=== PATIENT | male | born 1980 | race Caucasian/White ===

== ENCOUNTER → 2018-03-23 12:18 | Outpatient (CLI) | payer BC, SELFPAY ==
[2018-03-23 12:48] LABS: Blood Urea Nitrogen 20 mg/dL (7-18); Creatinine,Serum 1.06 mg/dL (0.70-1.30); Estimated Glomerular Filt Rate 80 ml/min (>60); GFR (African American) 96 ML/MIN (>60)
--- NOTE | 2018-03-23 13:42 | CT_ITS ---
CT pelvis w con HISTORY: ITS.REASON: LLQ PAIN possible hernia. ORDERING PHYSICIAN: Bernadette Gutiérrez PATIENT AGE: 37 years COMPARISON: No previous Technique: Helical CT scanning performed through the pelvis with axial, coronal and sagittal reconstruction performed. Additional 3-D volume rendering reconstruction. All CT scans at the facility use one or more dose reduction, viz: automated exposure control; ma/kV adjustment per patient size (including targeted exams where dose is matched to indication; i.e. head); or iterative reconstruction technique. FINDINGS: Bony pelvis: Unremarkable. No acute fracture or dislocation. Hips: Unremarkable. No acute fracture or dislocation. Sacrum/coccyx: Unremarkable as visualized. No acute fracture. Soft tissues: Unremarkable No significant hernia evident. Slight increased fat along the inguinal canal bilaterally but no hernia, no bulge. No bowel loops. . There are some scattered moderate-sized inguinal lymph nodes bilaterally slightly more evident on left with 2 or 3 of these left inguinal nodes measure 2 cm in size with the largest measuring 2.7 cm in length but continues to demonstrate a normal fatty hilum. Most likely these are reactive lymph nodes but warrant follow-up.... Right inguinal nodes unremarkable. Imaging includes the umbilicus. No significant umbilical hernia. No spigelian hernia evident on these images . Bladder appears normal size with normal to upper normal wall thickness. Prostate appears normal size. No pelvic adenopathy or mass.. Appendix identified and normal terminal ileum unremarkable. No fluid in pelvis. Slight Generous adipose subcutaneous as well as intra-abdominal IMPRESSION: . No hernia evident. There does seem to be slight increased fat along the inguinal canals bilaterally and question perhaps some slight laxity of left inguinal canal but no discrete hernia 2. Increased size and number of left inguinal nodes is noted: Several measuring up to 2 cm with Largest measuring 2.7 cm in length.. Most likely benign nodes but warrant follow-up clinically. . 3. Osseous pelvis intact. Soft tissues of pelvis intact.
== END ==
PROVIDERS: Family Provider Internal Medicine Adolescent Medicine; PCP Internal Medicine Adolescent Medicine; Visit Provider Nurse Practitioner Family
DX: R10.32 Left lower quadrant pain (principal)
CPT/HCPCS: 36415; 72193; 82565; 84520

== ENCOUNTER → 2020-06-15 14:58 | Outpatient (CLI) | payer BC, SELFPAY | PROVIDERS: PCP Internal Medicine Adolescent Medicine; Visit Provider Nurse Practitioner Family | DX: Z03.818 Encounter for observation for suspected exposure to other biological agents ruled out (principal); J20.9 Acute bronchitis, unspecified | CPT/HCPCS: U0003 ==

== ENCOUNTER 2021-01-04 10:13 | Emergency (ER) | payer BC, SELFPAY ==
--- NOTE | 2021-01-04 10:08 | ECG_ITS ---
APPROVED REPORT Exam: Resting ECG HR:57 bpm ECG Measurements Heart Rate 57 AXES NC 140 P 42 QRSd 114 QRS 37 QT 424 T 53 QTc 412 Conclusion Sinus bradycardia Incomplete right bundle branch block Borderline ECG Electronically signed by : Piyush Quiroga, 01/05/2021 08:49:35
[2021-01-04 10:16] VITALS: BP 113/75; PULSE 67; RESP 18; TEMP 36.9; O2SAT 99; BMI 36.0
[2021-01-04 10:22] VITALS: BMI 36.0
--- NOTE | 2021-01-04 10:23 | XR_ITS ---
PROCEDURE: XR CHEST PORTABLE CLINICAL HISTORY: chest pain COMPARISON: No exams were available for comparison FINDINGS: The cardiomediastinal silhouette and pulmonary vascularity are within normal limits. The lungs are clear without infiltrates, suspicious nodules, or pleural effusions. No acute bony abnormalities. IMPRESSION: No acute findings. Dictated by: Umesh Camops MD 01/04/2021 10:44 Umesh Campos MD in [facility] 01/04/2021 10:44
[2021-01-04 10:37] LABS: Basophils % 0.4 % (0.1-2.0); Eosinophils # 0.4 K/mm3 (0.0-0.4); Eosinophils % 3.4 % (0.1-12.0); Hematocrit 45.1 % (42.0-52.0); Hemoglobin 15.4 g/dL (14.1-18.0); Lymphocytes # 1.7 K/mm3 (0.7-4.5); Lymphocytes % 16.2 % (10-50); Mean Corpuscular HGB Conc 34.1 g/dL (31.8-35.4); Mean Corpuscular Volume 84.9 fl (80-94); Monocytes # 0.6 K/mm3 (0.1-1.0); Monocytes % 6.1 % (1.7-9.3); Neutrophils # 7.7 K/mm3 (1.8-7.8); Neutrophils % 73.9 % (37.0-80.0); Platelet Count 183 K/mm3 (142-424); Red Blood Count 5.31 M/mm3 (4.60-6.20); Red Cell Distribution Width 13.7 % (11.5-17.5); White Blood Count 10.4 K/mm3 (4.8-10.8)
[2021-01-04 10:41] LABS: Anion Gap 8.8 mEq/L (5-15); Blood Urea Nitrogen 15 mg/dl (9-20); Calcium 8.9 mg/dl (8.4-10.2); Carbon Dioxide 26 mmol/L (22.0-30.0); Chloride 105 mmol/L (98-107); Creatinine Clearance Estimated 185 mL/min (50-200); Estimated Glomerular Filt Rate 108 ml/min (>60); GFR (African American) 131 ML/MIN (>60); Glucose 136 mg/dl (74-100); Potassium 3.8 mmoL/L (3.5-5.1); Sodium 136 mmol/L (136-145)
[2021-01-04 10:54] LABS: Troponin I < 0.01 ng/ml (0.00-0.034)
--- NOTE | 2021-01-04 11:13 | [facility].EDCP ---
ED Disposition Clinical Impression: Atypical chest pain Disposition: Home, Self-Care Condition on Discharge: Fair Instructions: DI for Atypical Chest Pain Additional Instructions: We have checked your cardiac enzymes and these are within normal limits EKG shows sinus bradycardia chest x-ray shows no acute findings labs including CBC and CMP are within normal limits please follow-up as needed Referrals: Tyrese Huggins MD [Primary Care Provider] - - Critical Care Critical Care Time: No Attestation: On 01/04/21, the high probability of a clinically significant, sudden or life threatening deterioration of the following system(s) required my full and direct attention, intervention and personal management. The time I documented below is in addition to time spent performing reported procedures but includes the following listed in this critical care notation. Medical Decision Making - Medical Records Medical records reviewed: Yes: I reviewed the patient's medical records. MR Comment: EKG shows sinus bradycardia we have also checked CBC CMP and troponin and these are all within normal limits; chest x-ray shows no acute findings; plan is to discharge home with reassurance; You do have risk factors including smoking will be advising stop smoking - Kev Inquiry Pt receiving controlled substance: No Vital Signs: 01/04/21 10:16 01/04/21 11:25 Temperature 98.4 F Temperature Source Oral Pulse Rate 54 L Pulse Rate [Right Radial] 67 Respiratory Rate 18 17 Blood Pressure 104/62 L Blood Pressure [Right Arm] 113/75 Blood Pressure Mean [Right Arm] 87 Blood Pressure Source Automatic Cuff Blood Pressure Source [Right Arm] Automatic Cuff Blood Pressure Position Sitting Blood Pressure Position [Right Arm] Sitting 02 Sat by Pulse Oximetry 99 97 Oxygen Delivery Method Room Air Room Air - Lab Data Lab results reviewed: Yes: I reviewed the patient's lab results. Lab Results 01/04/21 10:15: WBC 10.4, RBC 5.31, Hgb 15.4, Hct 45.1, MCV 84.9, MCH 29.0, MCHC 34.1, RDW 13.7, Plt Count 183, MPV 9.0, Neut % (Auto) 73.9, Lymph % (Auto) 16.2, Hardy % (Auto) 6.1, Eos % (Auto) 3.4, Baso % (Auto) 0.4, Neut # (Auto) 7.7, Lymph # (Auto) 1.7, Hardy # (Auto) 0.6, Eos # (Auto) 0.4, Baso # (Auto) 0.0 01/04/21 10:15: Sodium 136, Potassium 3.8, Chloride 105, Carbon Dioxide 26, Anion Gap 8.8, BUN 15, Creatinine 0.80, Estimated Creat Clear 185, Estimated GFR 108, Est GFR ( Amer) 131, Glucose 136 H, Calcium 8.9, Troponin I < 0.01 Result diagrams: 01/04/21 10:15 01/04/21 10:15 Orders (Tests/Meds): ED MEDICATIONS Discontinued Medications Generic Name Dose Route Start Last Admin Trade Name Genaro PRN Reason Stop Dose Admin Aspirin 243 mg 01/04/21 10:23 01/04/21 10:43 Aspirin 81mg Chewable Tablet PO 01/04/21 10:24 243 mg ONCE ONE Administration ORDERS Category Date Time Status CMP [Comprehensive Metabolic Panel] Stat Lab 01/04/21 11:12 Ordered Complete Blood Count Auto Diff Stat Lab 01/04/21 11:12 Ordered Drug Screen,Urine Stat Lab 01/04/21 11:12 Ordered Troponin I Q3H Lab 01/04/21 13:30 Ordered Troponin I Q3H Lab 01/04/21 16:30 Ordered Chest Pain HPI - General Chief Complaint: Chest Pain Stated Complaint: chest pain Time Seen by Provider: 01/04/21 11:04 Mode of Arrival: Ambulatory Limitations: No Limitations Description of Symptoms (Recalled from ER Triage Doc. by RN): Pt reports chest pain, pt reports he went to stand up from his chair states pain was so bad he had to sit back down. Pt reports on his way to work this morning he got clammy feeling so he went back home. Pt reports pain is intermittent in nature and radiates to his L shoulder. - History of Present Illness HPI narrative: 40-year-old male here with a complaint of chest pain that started this morning he has a history of diabetes and hypertension he also has family history of heart disease and is a smoker MD complaint:
[2021-01-04 11:25] VITALS: BP 104/62; PULSE 54; RESP 17; O2SAT 97
[2021-01-04 12:15] VITALS: BP 106/67; PULSE 53; RESP 20; O2SAT 97
[2021-01-04 12:43] VITALS: BP 106/67; PULSE 57; RESP 18; TEMP 36.9; O2SAT 98
== END 2021-01-04 12:43 | disposition home or self-care (01) ==
PROVIDERS: Emergency Provider Emergency Medicine; PCP Internal Medicine Adolescent Medicine
DX: R07.89 Other chest pain (principal); I10 Essential (primary) hypertension; E11.9 Type 2 diabetes mellitus without complications; F17.210 Nicotine dependence, cigarettes, uncomplicated
CPT/HCPCS: 71045; 80048; 84484; 85025; 93005; 99282

== ENCOUNTER → 2021-08-24 21:06 | Outpatient (CLI) | payer BC, SELFPAY ==
[2021-08-24 21:40] LABS: Basophils # 0.1 K/mm3 (0-0.2); Eosinophils # 0.3 K/mm3 (0.0-0.4); Eosinophils % 2.6 % (0.1-12.0); Hemoglobin 16.4 g/dL (14.1-18.0); Lymphocytes # 2.1 K/mm3 (0.7-4.5); Lymphocytes % 21.4 % (10-50); Mean Corpuscular HGB Conc 34.2 g/dL (31.8-35.4); Mean Corpuscular Hemoglobin 29.7 pg (27.0-31.2); Mean Platelet Volume 9.7 fl (7.4-10.4); Monocytes # 0.5 K/mm3 (0.1-1.0); Monocytes % 4.9 % (1.7-9.3); Neutrophils # 6.9 K/mm3 (1.8-7.8); Neutrophils % 70.2 % (37.0-80.0); Platelet Count 224 K/mm3 (142-424); Red Blood Count 5.52 M/mm3 (4.60-6.20); Red Cell Distribution Width 13.5 % (11.5-17.5); White Blood Count 9.8 K/mm3 (4.8-10.8)
[2021-08-24 21:54] LABS: Alanine Aminotransferase 32 U/L (12-78); Albumin Level 4.5 g/dl (3.5-5.0); Albumin/Globulin Ratio 1.6 (1.1-1.8); Alkaline Phosphatase 90 U/L (38-126); Anion Gap 14.8 mEq/L (5-15); Aspartate Amino Transferase 29 U/L (17-59); Bilirubin,Total 0.4 mg/dl (0.2-1.3); Blood Urea Nitrogen 13 mg/dl (9-20); Calcium 9.3 mg/dl (8.4-10.2); Carbon Dioxide 26 mmol/L (22.0-30.0); Chloride 100 mmol/L (98-107); Chol/HDL Ratio 4.2 (1-3.5); Cholesterol 142 mg/dl (140-200); Estimated Glomerular Filt Rate 108 ml/min (>60); GFR (African American) 130 ML/MIN (>60); Globulin 2.9 g/dL (1.3-3.2); Glucose 167 mg/dl (74-100); HDL Cholesterol 34 mg/dl (40-60); Potassium 3.8 mmoL/L (3.5-5.1); Sodium 137 mmol/L (136-145); Total Protein,Serum 7.4 g/dl (6.3-8.2); Triglycerides 315 mg/dl (30-150); VLDL Cholesterol 63 mg/dL (0-40)
[2021-08-24 22:05] LABS: Direct LDL Cholesterol 75.28 mg/dL (100-129)
[2021-08-24 22:56] LABS: Hemoglobin A1C 6.6 % (4.0-6.0)
== END ==
PROVIDERS: Visit Provider Internal Medicine Adolescent Medicine
DX: E11.9 Type 2 diabetes mellitus without complications (principal); Z79.84 Long term (current) use of oral hypoglycemic drugs
CPT/HCPCS: 80053; 80061; 83036; 85025

== ENCOUNTER → 2022-07-29 10:08 | Outpatient (CLI) | payer BC, SELFPAY ==
[2022-07-29 10:59] LABS: Basophils # 0.1 K/mm3 (0-0.2); Basophils % 1.1 % (0.1-2.0); Eosinophils # 0.2 K/mm3 (0.0-0.4); Eosinophils % 1.9 % (0.1-12.0); Hematocrit 46.2 % (42.0-52.0); Hemoglobin 15.5 g/dL (14.1-18.0); Lymphocytes # 2.1 K/mm3 (0.7-4.5); Lymphocytes % 23.8 % (10-50); Mean Corpuscular HGB Conc 33.5 g/dL (31.8-35.4); Mean Corpuscular Hemoglobin 28.9 pg (27.0-31.2); Mean Corpuscular Volume 86.4 fl (80-94); Monocytes # 0.5 K/mm3 (0.1-1.0); Monocytes % 5.6 % (1.7-9.3); Neutrophils # 5.8 K/mm3 (1.8-7.8); Neutrophils % 67.6 % (37.0-80.0); Platelet Count 224 K/mm3 (142-424); Red Blood Count 5.35 M/mm3 (4.60-6.20); White Blood Count 8.6 K/mm3 (4.8-10.8)
[2022-07-29 11:08] LABS: Alanine Aminotransferase 36 U/L (12-78); Albumin Level 4.4 g/dl (3.5-5.0); Albumin/Globulin Ratio 1.5 (1.1-1.8); Alkaline Phosphatase 101 U/L (38-126); Aspartate Amino Transferase 27 U/L (17-59); Bilirubin,Total 0.5 mg/dl (0.2-1.3); Blood Urea Nitrogen 19 mg/dl (9-20); Calcium 9.6 mg/dl (8.4-10.2); Carbon Dioxide 30 mmol/L (22.0-30.0); Chloride 98 mmol/L (98-107); Cholesterol 112 mg/dl (140-200); Estimated Glomerular Filt Rate 83 ml/min (>60); GFR (African American) 100 ML/MIN (>60); Globulin 2.9 g/dL (1.3-3.2); Glucose 121 mg/dl (74-100); HDL Cholesterol 28 mg/dl (40-60); Sodium 142 mmol/L (136-145); Total Protein,Serum 7.3 g/dl (6.3-8.2); Triglycerides 85 mg/dl (30-150); VLDL Cholesterol 17 mg/dL (0-40)
[2022-07-29 11:19] LABS: Direct LDL Cholesterol 59.56 mg/dL (100-129); Hemoglobin A1C 6.4 % (4.0-6.0)
[2022-07-29 11:59] LABS: 25-OH Vitamin D, Total 22.4 ng/mL (30-100)
== END ==
PROVIDERS: PCP Internal Medicine Adolescent Medicine; Visit Provider Internal Medicine Adolescent Medicine
DX: E11.9 Type 2 diabetes mellitus without complications (principal); E55.9 Vitamin D deficiency, unspecified; G47.33 Obstructive sleep apnea (adult) (pediatric); Z79.84 Long term (current) use of oral hypoglycemic drugs
CPT/HCPCS: 36415; 80053; 80061; 82306; 83036; 85025

== ENCOUNTER 2023-04-24 00:22 | Emergency (ER) | payer BC, SELFPAY ==
[2023-04-24 00:23] VITALS: BP 169/102; PULSE 57; RESP 16; TEMP 36.7; O2SAT 98; BMI 36.8
[2023-04-24 00:24] VITALS: BMI 36.8
--- NOTE | 2023-04-24 00:25 | ECG_ITS ---
APPROVED REPORT Exam: Resting ECG HR:51 bpm ECG Measurements Heart Rate 51 AXES IL 152 P 5 QRSd 111 QRS 79 QT 397 T 73 QTc 375 Conclusion SINUS BRADYCARDIA MODERATE INTRAVENTRICULAR CONDUCTION DELAY [110+ ms QRS DURATION] BORDERLINE ECG UNCONFIRMED REPORT Electronically signed by : Piyush Quiroga MD 04/25/2023 19:46:16
[2023-04-24 00:28] VITALS: PULSE 57
[2023-04-24 00:37] LABS: Basophils # 0.1 K/mm3 (0-0.2); Basophils % 0.8 % (0.1-2.0); Eosinophils # 0.3 K/mm3 (0.0-0.4); Eosinophils % 3.5 % (0.1-12.0); Hematocrit 45.1 % (42.0-52.0); Hemoglobin 15.4 g/dL (14.1-18.0); Lymphocytes # 2.9 K/mm3 (0.7-4.5); Lymphocytes % 35.4 % (10-50); Mean Corpuscular HGB Conc 34.1 g/dL (31.8-35.4); Mean Corpuscular Hemoglobin 29.4 pg (27.0-31.2); Mean Corpuscular Volume 86.2 fl (80-94); Monocytes # 0.5 K/mm3 (0.1-1.0); Neutrophils # 4.4 K/mm3 (1.8-7.8); Neutrophils % 54.2 % (37.0-80.0); Platelet Count 205 K/mm3 (142-424); Red Blood Count 5.23 M/mm3 (4.60-6.20); Red Cell Distribution Width 13.9 % (11.5-17.5); White Blood Count 8.2 K/mm3 (4.8-10.8)
--- NOTE | 2023-04-24 00:44 | XR_ITS ---
PROCEDURE INFORMATION: Exam: XR Chest Exam date and time: 04/24/2023 12:42 AM Age: 42 years old Clinical indication: Pain; Chest pressure; Additional info: Cp TECHNIQUE: Imaging protocol: Radiologic exam of the chest. Views: 1 view. COMPARISON: CR XR CHEST PORTABLE 01/04/2021 10:31 AM FINDINGS: Lungs: Unremarkable. No consolidation. Pleural spaces: Unremarkable. No pleural effusion. No pneumothorax. Heart/Mediastinum: Unremarkable. No cardiomegaly. Vasculature: Unremarkable. Bones/joints: Unremarkable. IMPRESSION: No acute findings.
[2023-04-24 00:45] LABS: Alanine Aminotransferase 30 U/L (12-78); Albumin Level 4.2 g/dl (3.5-5.0); Albumin/Globulin Ratio 1.3 (1.1-1.8); Alkaline Phosphatase 81 U/L (38-126); Anion Gap 11.8 mEq/L (5-15); Aspartate Amino Transferase 29 U/L (17-59); Bilirubin,Total 0.4 mg/dl (0.2-1.3); Blood Urea Nitrogen 16 mg/dl (9-20); Calcium 8.8 mg/dl (8.4-10.2); Carbon Dioxide 26 mmol/L (22.0-30.0); Chloride 106 mmol/L (98-107); Creatinine Clearance Estimated 160 mL/min (50-200); Estimated Glomerular Filt Rate 93 ml/min (>60); GFR (African American) 113 ML/MIN (>60); Globulin 3.3 g/dL (1.3-3.2); Glucose 161 mg/dl (74-100); Potassium 3.8 mmoL/L (3.5-5.1); Sodium 140 mmol/L (136-145); Total Protein,Serum 7.5 g/dl (6.3-8.2)
[2023-04-24 01:01] VITALS: BP 124/90; PULSE 57; RESP 14; O2SAT 97
[2023-04-24 01:11] LABS: Troponin I < 0.01 ng/ml (0.00-0.034)
--- NOTE | 2023-04-24 01:17 | [facility].EDGENADL ---
Discharge Plan Disposition Patient Disposition: Home, Self-Care Condition: Good Prescriptions Prescriptions: No Action atorvastatin 20 MG tablet 20 mg PO HS lisinopril 20 MG tablet 20 mg PO DAILY montelukast 10 MG tablet 10 mg PO DAILY dapaglifloz propaned-metformin 1 EACH tablet, IR - ER, biphasic 24hr 1 tab PO DAILY Referrals Follow up/Referrals: Piyush Quiroga MD [Primary Care Provider] - See instructions Activity Restrictions/Add. Instructions Additional Instructions/Restrictions: You were evaluated in the emergency department today for chest pain. At this time I believe that you are safe to be discharged home as your work-up was reassuring. Please take all your home medications as previously prescribed. Make an appointment with your primary care physician for the next 48 hours to be reevaluated and discuss your visit to the emergency department. Return to the emergency department with any new or worsening symptoms. Clinical Impressions Clinical Impression: Chest pain Qualifiers: Chest pain type: unspecified Qualified Code(s): R07.9 - Chest pain, unspecified Discharge ED Provider: Dawson Salmeron Adult HPI General Chief complaint: Chest Pain Stated complaint: cp Time Seen by Provider: 04/24/23 00:52 Mode of Arrival: Ambulatory Source of Information: Patient Limitations: No Limitations Description of Symptoms (Recalled from ER Triage Doc. by RN): pt c/o episodes lt side stabbing chest pain that radiating down lt arm that started @ 1030 last night History of Present Illness HPI narrative: This 42-year-old male presents to the emergency department with chest pain. Patient states around 10:30 PM he was laying in bed and felt a sharp electrical shock type pain through his chest. It radiated to the left arm causing tingling. He states the pain has subsided but he still has intermittent tingling in the left arm. No headache, dizziness, numbness, or weakness. No speech changes. No difficulty walking. Pain is not worsened with exacerbation. He is not having any new shortness of breath. He states he has not taken any of his medications in the last 24 hours because they have been out camping. This includes him missing a dose of lisinopril as well as his albuterol inhaler. Patient denies nausea, vomiting, diarrhea, fever, chills, cough. Related Data Home Medications Medication Instructions Recorded Confirmed atorvastatin 20 mg tablet 20 mg PO HS Cholesterol 01/04/21 04/24/23 dapagliflozin propaned 10 1 tab PO DAILY Diabetes 01/04/21 04/24/23 mg-metformin ER 1,000 mg tablet,ext rel 24hr lisinopril 20 mg tablet 20 mg PO DAILY bp 01/04/21 04/24/23 montelukast 10 mg tablet 10 mg PO DAILY . 01/04/21 04/24/23 Allergies Allergy/AdvReac Type Severity Reaction Status Date / Time No Known Allergies Allergy Verified 01/04/21 10:22 [facility] Disclaimer: The information contained in this section may have been updated after the patient was seen, as this information can be updated by other users. Social History Smoking Status: Current every day smoker alcohol intake: current current occupational status: employed Travel in the last 8 weeks: None ROS Obtained: Yes All systems reviewed & no additional complaints except as documented Constitutional Constitutional: Denies chills, Denies fever(s), Denies headache(s) and Denies weakness Eyes Eyes: Denies change in vision ENT Ears, Nose, Mouth, and Throat: Denies dizziness, Denies headache(s), Denies nasal congestion and Denies sore throat Cardiovascular Cardiovascular: Reports chest pain, Denies dyspnea and Denies leg edema Respiratory Respiratory: Denies cough and Denies dyspnea Gastrointestinal Gastrointestingal: Denies constipation, diarrhea, nausea or vomiting Genitourinary Male Genitourinary: Denies difficulty urinating Musculoskeletal Musculoskeletal: Denies arthralgias, Denies myalgias, Denies numbness a
[2023-04-24 01:30] VITALS: BP 128/85; PULSE 57; RESP 19; O2SAT 99
[2023-04-24 02:00] VITALS: BP 114/74; PULSE 57; RESP 17; O2SAT 97
[2023-04-24 04:19] LABS: Troponin I < 0.01 ng/ml (0.00-0.034)
[2023-04-24 04:32] VITALS: BP 128/92; PULSE 53; RESP 16; TEMP 36.6; O2SAT 99
== END 2023-04-24 04:33 | disposition home or self-care (01) ==
PROVIDERS: Emergency Provider Emergency Medicine; PCP Internal Medicine Adolescent Medicine
DX: R07.9 Chest pain, unspecified (principal); M79.602 Pain in left arm; F17.200 Nicotine dependence, unspecified, uncomplicated; R00.1 Bradycardia, unspecified
CPT/HCPCS: 71045; 80053; 84484; 85025; 93005; 99285